=== PATIENT | female | born 1980 | race Caucasian/White ===

== ENCOUNTER 2023-11-09 09:39 | Emergency (ER) | payer OTHER ==
[2023-11-09 09:43] VITALS: BP 134/72; RESP 18; BMI 35.5
[2023-11-09] MEDS ORDERED: ACETAMINOPHEN 500 MG TABLET (FP) ONE (10:28)
[2023-11-09] MEDS: ACETAMINOPHEN 500 MG TABLET (FP) PO ONE (10:32)
[2023-11-09 11:30] VITALS: PULSE 88; TEMP 98.5
== END 2023-11-09 12:10 | disposition home or self-care (01) ==
LOC: JERFT 09:39
DX: M79.10 Myalgia, unspecified site (principal); R09.89 Other specified symptoms and signs involving the circulatory and respiratory systems; R05.9 Cough, unspecified; R09.81 Nasal congestion; J10.1 Influenza due to other identified influenza virus with other respiratory manifestations; Z20.822 Contact with and (suspected) exposure to COVID-19
CPT/HCPCS: 0241U-QW; 99283-25

== ENCOUNTER 2024-05-06 18:00 | Emergency (ER) | payer OTHER ==
[2024-05-06 18:11] VITALS: BP 139/72; PULSE 76; RESP 18; TEMP 97.8; BMI 29.9
[2024-05-06] MEDS ORDERED: LORazepam 1 MG TABLET ONE (19:15)
[2024-05-06] MEDS: LORazepam 2 MG TABLET PO ONE (19:18)
[2024-05-06 19:25] LABS: BASO % 0.5 % (0-2.0); EOS % 3.3 % (0-4.5); HEMATOCRIT 38.8 % (32.4-45.2); MCH 29.3 pg (25.7-33.7); MCHC 33.4 g/dl (32.0-36.0); MEAN CELL VOLUME 87.7 fl (80-96); MEAN PLT VOLUME 7.9 fl (7.5-11.1); MONO % 5.8 % (3.8-10.2); NEUT % 71.4 % (42.8-82.8); PLATELET COUNT 296 10^3/uL (134-434); RBC 4.42 M/mm3 (3.60-5.2); WHITE BLOOD COUNT 9.4 K/mm3 (4.0-10.0)
[2024-05-06 19:36] LABS: POTASSIUM 3.6 mmol/L (3.5-5.1)
[2024-05-06 19:38] LABS: CALCIUM 9.2 mg/dL (8.5-10.1)
[2024-05-06 19:39] LABS: ALBUMIN 3.9 g/dl (3.4-5.0); BLOOD UREA NITROGEN 13.2 mg/dL (7-18)
[2024-05-06 19:42] LABS: CREATININE 0.6 mg/dL (0.55-1.3)
[2024-05-06 19:43] LABS: BILIRUBIN,TOTAL 0.6 mg/dL (0.2-1); TOT PROT 7.6 g/dl (6.4-8.2)
== END 2024-05-06 20:11 | disposition home or self-care (01) ==
LOC: JER 18:00
DX: R07.89 Other chest pain (principal); R20.0 Anesthesia of skin; R06.02 Shortness of breath; F41.9 Anxiety disorder, unspecified
CPT/HCPCS: 36415; 71046-TC-FY; 80053; 83690; 84484; 85025; 93005; 93010; 99285-25

== ENCOUNTER 2024-07-24 20:31 | Emergency (ER) | payer OTHER ==
[2024-07-24 20:37] VITALS: BP 157/88; PULSE 68; RESP 20; TEMP 99; BMI 34.0
== END 2024-07-24 22:52 | disposition home or self-care (01) ==
LOC: JERFT 20:31
DX: F41.9 Anxiety disorder, unspecified (principal); V40.6XXA Car passenger injured in collision with pedestrian or animal in traffic accident, initial encounter; Y92.410 Unspecified street and highway as the place of occurrence of the external cause
CPT/HCPCS: 99283-25

== ENCOUNTER 2024-08-31 13:56 | Observation (INO) | payer OTHER ==
[2024-08-31 15:17] LABS: BASO % 0.7 % (0-2.0); EOS % 3.6 % (0-4.5); HEMATOCRIT 39.3 % (32.4-45.2); LYMPH % 22.5 % (8-40); MCH 29.5 pg (25.7-33.7); MCHC 33.1 g/dl (32.0-36.0); MEAN CELL VOLUME 88.9 fl (80-96); MEAN PLT VOLUME 8.4 fl (7.5-11.1); NEUT % 65.2 % (42.8-82.8); PLATELET COUNT 294 10^3/uL (134-434); RBC 4.42 M/mm3 (3.60-5.2); RDW 13.9 % (11.6-15.6); WHITE BLOOD COUNT 8.2 K/mm3 (4.0-10.0)
[2024-08-31 15:29] LABS: INR 0.95 (0.83-1.09); PROTHROMBIN TIME (PATIENT) 10.7 SEC (9.7-13.0)
[2024-08-31 15:31] LABS: ACTIVATED PTT 30.4 SECONDS (25.2-36.5)
[2024-08-31 15:44] LABS: CHLORIDE 106 mmol/L (98-107); SODIUM 140 mmol/L (136-145)
[2024-08-31 15:45] LABS: CALCIUM 9.1 mg/dL (8.5-10.1)
[2024-08-31 15:46] LABS: ALBUMIN 3.7 g/dl (3.4-5.0); ANION GAP 4 mmol/L (4-13); CO2 29 mmol/L (21-32)
[2024-08-31 15:47] LABS: BLOOD UREA NITROGEN 11.9 mg/dL (7-18); GLUCOSE,RANDOM 94 mg/dL (74-106)
[2024-08-31 15:49] LABS: CREATININE 0.7 mg/dL (0.55-1.3)
[2024-08-31 15:50] LABS: SGOT/AST 20 U/L (15-37); SGPT/ALT 28 U/L (13-61)
[2024-08-31 15:51] LABS: CHOLESTEROL 215 mg/dL (50-200); TOT PROT 7.2 g/dl (6.4-8.2)
[2024-08-31 15:52] LABS: BILIRUBIN,TOTAL 0.3 mg/dL (0.2-1); LDL CHOLESTEROL (ONLY SJRH) 146 mg/dL (5-100)
[2024-08-31 15:54] LABS: ALK PHOS 111 U/L (45-117); HDL CHOLESTEROL 47 mg/dL (40-60)
[2024-08-31 16:41] LABS: HIV INTERPRETATION NEGATIVE (NEGATIVE)
[2024-08-31] MEDS ORDERED: ASPIRIN 81 MG CHEWABLE TABLETS ONE (18:49)
[2024-08-31] MEDS ORDERED: predniSONE 20 MG TABLET (UD) ONE (18:49)
[2024-08-31] MEDS ORDERED: valACYclovir HCL 500 MG TABLET (FP) ONE (18:50)
[2024-08-31] MEDS: valACYclovir HCL 500 MG TABLET (FP) PO SCH (18:58)
[2024-08-31] MEDS: ASPIRIN 81 MG CHEWABLE TABLETS PO ONE (18:58)
[2024-08-31] MEDS: predniSONE 20 MG TABLET (UD) PO ONE (18:58)
[2024-08-31 19:00] LABS: PH,URINE 6.5 (5.0-8.0); URINE APPEARANCE CLEAR; URINE BILIRUBIN NEGATIVE (NEGATIVE); URINE COLOR YELLOW; URINE GLUCOSE (UA) NEGATIVE (NEGATIVE); URINE KETONE NEGATIVE (NEGATIVE); URINE LEUK ESTERASE NEGATIVE (NEGATIVE); URINE NITRITE NEGATIVE (NEGATIVE); URINE PROTEIN NEGATIVE (NEGATIVE); URINE UROBILINOGEN 0.2 mg/dL (0.2-1.0)
[2024-08-31] MEDS ORDERED: ALBUTEROL SO4 HFA INHALER IH PRN (19:13)
[2024-08-31] MEDS ORDERED: ATORVASTATIN CA 40 MG TABLET (FP) ONE (22:04)
[2024-08-31] MEDS: ATORVASTATIN CA 40 MG TABLET (FP) PO SCH (22:06)
[2024-09-01] MEDS ORDERED: valACYclovir HCL 500 MG TABLET (FP) ONE ×3 (00:13→12:21)
[2024-09-01] MEDS: valACYclovir HCL 500 MG TABLET (FP) PO SCH (00:18)
[2024-09-01] MEDS ORDERED: ESCITALOPRAM OXALATE 10 MG TABLET ONE (09:04)
[2024-09-01] MEDS ORDERED: ASPIRIN 81 MG CHEWABLE TABLETS ONE (09:04)
[2024-09-01] MEDS ORDERED: ENOXAPARIN NA (PORCINE) 40 MG/0.4 ML DISP.SYRIN SQ ONE (09:05)
[2024-09-01] MEDS: ENOXAPARIN NA (PORCINE) 40 MG/0.4 ML DISP.SYRIN SQ SCH (09:17)
[2024-09-01] MEDS: ESCITALOPRAM OXALATE 10 MG TABLET PO SCH (09:17)
[2024-09-01] MEDS: ASPIRIN 81 MG CHEWABLE TABLETS PO SCH (09:17)
[2024-09-01 17:34] VITALS: BMI 30.2
[2024-09-01] MEDS: LORazepam 2 MG/ML SDV VIAL IVPUSH PRN (19:07)
[2024-09-02 08:07] LABS: BASO % 0.6 % (0-2.0); EOS % 3.1 % (0-4.5); HEMATOCRIT 40.2 % (32.4-45.2); HEMOGLOBIN 13.1 GM/dL (10.7-15.3); LYMPH % 31.6 % (8-40); MCH 29.3 pg (25.7-33.7); MCHC 32.7 g/dl (32.0-36.0); MEAN CELL VOLUME 89.7 fl (80-96); MEAN PLT VOLUME 8.5 fl (7.5-11.1); MONO % 6.3 % (3.8-10.2); NEUT % 58.4 % (42.8-82.8); PLATELET COUNT 283 10^3/uL (134-434); RBC 4.48 M/mm3 (3.60-5.2); RDW 13.6 % (11.6-15.6); WHITE BLOOD COUNT 8.4 K/mm3 (4.0-10.0)
[2024-09-02 08:26] LABS: ALBUMIN 3.7 g/dl (3.4-5.0); BLOOD UREA NITROGEN 19.6 mg/dL (7-18); CALCIUM 9.2 mg/dL (8.5-10.1); MAGNESIUM 2.2 mg/dL (1.8-2.4)
[2024-09-02 08:29] LABS: CREATININE 0.7 mg/dL (0.55-1.3)
[2024-09-02 08:30] LABS: BILIRUBIN,TOTAL 0.4 mg/dL (0.2-1); PHOSPHOROUS 4.3 mg/dL (2.5-4.9)
[2024-09-02 09:16] VITALS: BP 110/66; PULSE 66; RESP 18; TEMP 98.4
== END 2024-09-02 13:57 | disposition home or self-care (01) ==
LOC: JER 13:56 → JERBED 17:11 → J4W 09-01 16:43
PROVIDERS: ADMIT Internal Medicine; ATTEND Internal Medicine
PROC: 3E013GC Introduction of Other Therapeutic Substance into Subcutaneous Tissue, Percutaneous Approach (ICD-10-PCS; principal; 2024-08-31)
PROC: 3E033NZ Introduction of Analgesics, Hypnotics, Sedatives into Peripheral Vein, Percutaneous Approach (ICD-10-PCS; 2024-08-31)
DX: R29.810 Facial weakness (principal); I10 Essential (primary) hypertension; J45.909 Unspecified asthma, uncomplicated; F41.9 Anxiety disorder, unspecified; R73.03 Prediabetes; E78.5 Hyperlipidemia, unspecified; B00.9 Herpesviral infection, unspecified
CPT/HCPCS: 36415; 70450-TC; 70552-TC; 80053; 80061; 81003; 82550; 82962; 83036; 83735; 84100; 84443; 84484; 84703; 85025; 85610; 85730; 86618; 86803; 86850; 86900; 86901; 87389; 93005; 93010; 93306-TC; 93880-TC; 96372; 96374; 99285-25; G0378